=== PATIENT | male | born 1955 | race Caucasian/White ===

== ENCOUNTER 2016-08-07 06:42 | Day surgery (SDC) | payer OTHER ==
[~2016-08-07] VITALS: Ht 160 cm; Wt 74.4 kg
[2016-08-07] MEDS ORDERED: ONDANSETRON HCL 4MG/2ML VIAL IV PRN (07:15)
[2016-08-07] MEDS ORDERED: FENTANYL CITRATE/PF 50MCG/ML 2ML VIAL IV PRN (07:15)
[2016-08-07] MEDS ORDERED: SODIUM CHLORIDE 0.9% 1,000 ML IV SCH (07:25)
[2016-08-07] MEDS ORDERED: MIDAZOLAM HCL 2 MG/2 ML VIAL ONE (08:35)
[2016-08-07] MEDS ORDERED: LIDOCAINE HCL 1% 20ML VIAL (Pyxis) INJ ONE (08:36)
[2016-08-07] MEDS ORDERED: PROPOFOL 200MG/20ML VIAL IV ONE (08:36)
[2016-08-07] MEDS ORDERED: FENTANYL CITRATE/PF 50MCG/ML 2ML VIAL ONE (09:03)
[2016-08-07 09:44] VITALS: BP 136/78
[2016-08-07] MEDS ORDERED: LIDOCAINE HCL 2%/EPINEPHRINE 1:100,000 20 ML VIAL INFIL ONE (14:23)
[2016-08-07] MEDS ORDERED: BALANCED SALT IRRIG SOLN 15ML ONE (14:23)
[2016-08-07] MEDS ORDERED: NEO/POLYMYX B SULF/DEXAMETH OPHTH OINT 3.5GM ONE (14:23)
[2016-08-07] MEDS ORDERED: BUPIVACAINE HCL/PF 0.75% (7.5MG/ML) 10ML ONE (14:23)
[2016-08-07] MEDS ORDERED: TETRACAINE 0.5% OPHTH DROPS 4ML ONE (14:23)
[2016-08-07] MEDS ORDERED: CIPROFLOXACIN 0.3% OPHTH SOLN 2.5ML ONE (14:23)
[2016-08-07] MEDS ORDERED: PREDNISOLONE ACETATE 1% OPHTH DROPS 1ML ONE (14:23)
== END 2016-08-07 10:30 | disposition home or self-care (01) ==
LOC: OR 06:42
PROVIDERS: ATTEND Ophthalmology
DX: H11.002 Unspecified pterygium of left eye (principal); Z88.2 Allergy status to sulfonamides
CPT/HCPCS: 65426; 82962; J2250; J3010; J3490; J7030; J2704

== ENCOUNTER 2016-12-25 07:41 | Day surgery (SDC) | payer MEDICAID ==
[~2016-12-25] VITALS: Ht 160 cm; Wt 69.4 kg
[2016-12-25 08:28] LABS: BASOPHILS % 1.2 % (0.0-2.0); EOSINOPHILS % 2.5 % (0.0-5.0); HEMATOCRIT. 38.1 % (42.0-52.0); HEMOGLOBIN. 13.2 g/dL (14.0-18.0); LYMPHOCYTES % 41.8 % (20.0-50.0); MEAN CORPUSCULAR HEMOGLOBIN 32.6 pg (28.0-32.0); MEAN CORPUSCULAR VOLUME 94.3 fL (80.0-94.0); MEAN PLATELET VOLUME 7.7 fl (7.4-10.4); MONOCYTES % 12.1 % (2.0-8.0); NEUTROPHILS % 42.4 % (40.0-76.0); PLATELET 189 x1000/uL (130-400); RED BLOOD CELL COUNT 4.05 mill/uL (4.7-6.1); RED CELL DISTRIBUTION WIDTH 12.7 % (11.6-14.6)
[2016-12-25] MEDS ORDERED: LACTATED RINGERS 1,000 ML IV SCH (09:00)
[2016-12-25] MEDS ORDERED: BALANCED SALT IRRIG SOLN COMB1 500ML OP SCH (11:15)
[2016-12-25] MEDS ORDERED: PREDNISOLONE ACETATE 1% OPHTH DROPS 1ML ONE (11:56)
[2016-12-25] MEDS ORDERED: BALANCED SALT IRRIG SOLN 15ML ONE (11:56)
[2016-12-25] MEDS ORDERED: BUPIVACAINE HCL/PF 0.75% (7.5MG/ML) 10ML ONE (11:56)
[2016-12-25] MEDS ORDERED: NEO/POLYMYX B SULF/DEXAMETH OPHTH OINT 3.5GM ONE (11:56)
[2016-12-25] MEDS ORDERED: LIDOCAINE HCL 2%/EPINEPHRINE 1:100,000 20 ML VIAL INFIL ONE (11:56)
[2016-12-25] MEDS ORDERED: TETRACAINE 0.5% OPHTH DROPS 4ML ONE (11:56)
[2016-12-25] MEDS ORDERED: CIPROFLOXACIN 0.3% OPHTH SOLN 2.5ML ONE (11:56)
[2016-12-25] MEDS ORDERED: LABETALOL HCL 5MG/ML VIAL 20ML IV PRN (12:30)
[2016-12-25] MEDS ORDERED: MEPERIDINE HCL/PF 25MG/ML CPJ IV PRN (12:30)
[2016-12-25] MEDS ORDERED: ONDANSETRON HCL 4MG/2ML VIAL IV PRN (12:30)
[2016-12-25] MEDS ORDERED: PROPOFOL 200MG/20ML VIAL IV ONE (12:48)
== END 2016-12-25 14:15 | disposition home or self-care (01) ==
LOC: OR 07:41
PROVIDERS: ATTEND Ophthalmology
DX: H11.001 Unspecified pterygium of right eye (principal); Z88.2 Allergy status to sulfonamides; E66.9 Obesity, unspecified
CPT/HCPCS: 36415; 65420; 82962; 85025; J3490; J7120; J2704